=== PATIENT | female | born 1990 | race American Indian/Alaskan Native ===

== ENCOUNTER 2016-09-06 18:59 | Emergency (ER) | payer OTHER, MEDICAID ==
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
[2016-09-06] MEDS ORDERED: TYLENOL PO ONE (22:59)
[2016-09-06 23:19] VITALS: BP 110/81
== END 2016-09-06 23:03 | disposition home or self-care (01) ==
LOC: ED 18:59
DX: O26.891 Other specified pregnancy related conditions, first trimester (principal); S93.401A Sprain of unspecified ligament of right ankle, initial encounter; R51 Headache; Z3A.01 Less than 8 weeks gestation of pregnancy; F17.200 Nicotine dependence, unspecified, uncomplicated; V43.52XA Car driver injured in collision with other type car in traffic accident, initial encounter; Y93.9 Activity, unspecified; Y99.9 Unspecified external cause status; Y92.410 Unspecified street and highway as the place of occurrence of the external cause
CPT/HCPCS: 99283